=== PATIENT | female | born 1980 | race American Indian/Alaskan Native ===

== ENCOUNTER 2018-06-26 20:04 | Emergency (ER) | payer OTHER ==
[2018-06-26 20:31] VITALS: BP 123/72
[2018-06-26] MEDS ORDERED: Penicillin G Benzathine 1,200,000 Units/2 ML Syringe IM ONE (21:31)
--- NOTE | 2018-06-26 21:43 | EDM.PDOC ---
ED HPI GENERAL MEDICAL PROBLEM - General Chief Complaint: Respiratory Problem Stated Complaint: SORE THROAT/COUGH/BODY ACHES Time Seen by Provider: 06/26/18 20:19 Source of Information: Reports: Patient, RN Notes Reviewed History Limitations: Reports: No Limitations - History of Present Illness INITIAL COMMENTS - FREE TEXT/NARRATIVE: Patient is a 38 year old female who presents to the ED for the evaluation of headache, sore throat, and body aches for 2 days. She states that the whole house has been sick. She did not get the flu shot this year. Her throat pain is the worst and is at an 8/10 on the pain scale. She denies any fever/chills, nausea/vomiting/diarrhea, chest pain or shortness of breath. She did take 600mg of ibuprofen this morning and again around 4pm. She states that this helps. Treatments ASSISTANT COMMUNITY DIRECTOR: Reports: Other (see below) Other Treatments ASSISTANT COMMUNITY DIRECTOR: advil Headache Pain Score (Numeric/FACES): 8 - Related Data Allergies Allergy/AdvReac Type Severity Reaction Status Date / Time No Known Allergies Allergy Verified 09/26/15 19:02 Home Meds: Home Meds . [No Known Home Meds] 06/26/18 [History] Past Medical History Gastrointestinal History: Reports: Cholelithiasis HOT BRAIDER History: Reports: Other HOT BRAIDER History: Endocrine/Metabolic History: Reports: Diabetes, Gestational - Past Surgical History GI Surgical History: Reports: Cholecystectomy, Other (See Below) Social & Family History - Family History Family Medical History: Noncontributory - Tobacco Use Smoking Status *Q: Never Smoker - Caffeine Use Caffeine Use: Reports: Coffee, Energy Drinks, Soda, Tea - Recreational Drug Use Recreational Drug Use: No ED ROS GENERAL - Review of Systems Review Of Systems: See Below Constitutional: Denies: Fever, Chills HEENT: Reports: Rhinitis, Throat Pain. Denies: Ear Pain, Throat Swelling Respiratory: Reports: Cough. Denies: Shortness of Breath, Wheezing, Sputum Cardiovascular: Reports: No Symptoms Endocrine: Reports: No Symptoms GI/Abdominal: Reports: No Symptoms : Reports: No Symptoms Musculoskeletal: Reports: No Symptoms Skin: Reports: No Symptoms Neurological: Reports: No Symptoms Psychiatric: Reports: No Symptoms Hematologic/Lymphatic: Reports: No Symptoms Immunologic: Reports: No Symptoms ED EXAM, GENERAL - Physical Exam Exam: See Below Exam Limited By: No Limitations General Appearance: Alert, WD/WN, No Apparent Distress Eye Exam: Bilateral Eye: EOMI, Normal Inspection, PERRL Ears: Normal External Exam, Normal Canal, Normal TMs Throat/Mouth: Normal Inspection, Normal Lips, Normal Oropharynx, No Airway Compromise, Other (pharyngeal erythema) Head: Atraumatic, Normocephalic Neck: Normal Inspection Respiratory/Chest: No Respiratory Distress, Lungs Clear, Normal Breath Sounds, No Accessory Muscle Use, Chest Non-Tender Cardiovascular: Normal Peripheral Pulses, Regular Rate, Rhythm, No Murmur Extremities: Normal Inspection, Normal Capillary Refill Neurological: Alert, Oriented, Normal Cognition, No Motor/Sensory Deficits Psychiatric: Normal Affect, Normal Mood Skin Exam: Warm, Dry, Intact, Normal Color, No Rash Course - Vital Signs Last Recorded V/S: Last Vital Signs Temp 98.4 F 06/26/18 20:28 Pulse 72 06/26/18 20:28 Resp 20 06/26/18 20:28 BP 123/72 06/26/18 20:28 Pulse Ox 100 06/26/18 20:28 - Orders/Labs/Meds Meds: Medications Discontinued Medications Generic Name Dose Route Start Last Admin Trade Name Freq PRN Reason Stop Dose Admin Penicillin G Benzathine 1.2 millunits 06/26/18 21:31 Bicillin L-A IM 06/26/18 21:32 ONETIME ONE - Re-Assessments/Exams Free Text/Narrative Re-Assessment/Exam: 06/26/18 21:46 Pt presents to the ED for the evaluation of cold like symptoms with sore throat. Her Influenza screen was negative, but there are 2 other members in her family that did test positive for influenza A. It is likely that she might still have the flu, but we did not catch it on the swab. She did test positive for strep, however and she did opt for the shot of Penicillin in the ED tonight. Departure - Departure Time of Disposition: 21:48 Disposition: Home, Self-Care 01 Condition: Fair Clinical Impression: Strep throat - Discharge Information *PRESCRIPTION DRUG MONITORING PROGRAM REVIEWED*: No *COPY OF PRESCRIPTION DRUG MONITORING REPORT IN PATIENT ESPIDEH: No Instructions: Strep Throat, [id number] Referrals: PCP,None [Primary Care Provider] - Additional Instructions: You have been evaluated in the ED for your sore throat and cold like symptoms. You did test positive for strep throat, you did receive a shot of penicillin in the ER, this will provide adequate coverage for the strep bacteria. Your flu swab did not show that you have Influenza, but with 2 other family members testing positive, it is likely that you may have the flu as well and we did not catch it on the swab, this will not tire changer however. This will be treated as a viral upper respiratory illness. You may take tylenol 500 mg or ibuprofen 600mg q6 hrs for pain relief. Do not exceed 4000mg tylenol in one day. Do not exceed 3200mg ibuprofen in one day. Please return to ED if your symptoms should change or worsen.
== END 2018-06-26 22:57 | disposition home or self-care (01) ==
LOC: JD.ED 20:04
DX: J02.0 Streptococcal pharyngitis (principal); Z90.49 Acquired absence of other specified parts of digestive tract
CPT/HCPCS: 87430; 87804; 96372; 99283; J0561